=== PATIENT | female | born 1990 | race Caucasian/White ===

== ENCOUNTER → 2017-03-24 | Outpatient (CLI) | payer OTHER ==
[~2017-03-24] MED LIST: COLACE 100MG C100 MG PO; IBUPROFEN600 MG PO; NORCO 5-325 TA1 EACH PO
== END ==
LOC: LAB 15:54
DX: Z02.1 Encounter for pre-employment examination (principal)
CPT/HCPCS: 86706; 86787

== ENCOUNTER → 2017-04-02 | Outpatient (CLI) | payer OTHER | LOC: LAB 15:01 | DX: Z02.1 Encounter for pre-employment examination (principal) ==